=== PATIENT | male | born 1945 | race African-American/Black ===

== ENCOUNTER 2020-07-27 08:06 | Outpatient (CLI) | payer MEDICARE, MEDICAID ==
--- NOTE | 2020-07-27 09:34 | MRI ---
MRI BRAIN WITH AND WITHOUT CONTRAST: DATE: 07/27/2020 HISTORY: 74-year-old male with ICD-10: "D 49.6 brain tumor" COMPARISON: 07/23/2020 CT. No prior brain MRIs. TECHNIQUE: Multiplanar, multisequence MRI of the brain performed pre- and post-IV injection of gadolinium based contrast agent. FINDINGS: In the left middle cranial fossa, there is an approximately 4.6 x 4.4 x 2.9 cm solid, homogeneously e nhancing extra-axial mass. It has fairly homogeneous signal intensity on T1 WI (isointense relative to brain parenchyma), T2 WI (isointense relative to townsend matter), and FLAIR (isointense to slightly h yperintense relative to townsend matter). The there is a thin CSF cleft between the mass and the adjacent inferior frontal lobe and left temporal lobe. The mass causes prominent vasogenic edema in the left temporal lobe. It compresses, distorts, and narrows, the left lateral ventricle and third ventricle. It compresses and distorts the left thalamus and midbrain. There is a 0.6 to 0.7 cm [id number] midline shift of the septum pellucidum. The mass extends into the prepontine cistern, slightly crossing the midline to the right. It also occ upies the suprasellar cistern. Dural venous sinuses are patent. Mild to moderate chronic ischemic white matter changes of the cerebrum, not unusual for age 74 years. No evidence of recent or remote intra-axial hemorrhage. No restricted diffusion. 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
[2020-07-27] MEDS ORDERED: Magnevist 469MG/ML 20 ML VIAL ONE (13:59)
== END 2020-07-27 08:07 | disposition home or self-care (01) ==
LOC: MRI 08:06
PROVIDERS: ATTEND Neurological Surgery
DX: D49.6 Neoplasm of unspecified behavior of brain (principal); D32.0 Benign neoplasm of cerebral meninges; G93.5 Compression of brain; G93.6 Cerebral edema
CPT/HCPCS: 70553; A9579